=== PATIENT | female | born 1950 | race Caucasian/White ===

== ENCOUNTER 2018-01-26 20:29 | Inpatient (IN) | payer MEDICARE, MEDICAID ==
[~2018-01-26] VITALS: Ht 165.1 cm; Wt 78.9 kg
[~2018-01-26 20:29] MED LIST: ARTIFICIAL TEA1 EACH OP; ASPIR 8181 MG PO; COLACE100 MG PO; DEPAKOTE SPRIN125 MG PO; DUONEB 2.5-0.5 M3 ML INH; FENTANYL1 EAC1 TD; FISH OIL 1,001000 M2 PO; FLONASE 0.05%50 MCG NASAL; HYDROCORTISONE TOP; INVEGA PO; K-DUR 20 MEQ T20 MEQ PO; LASIX 40 MG TAB40 M2 PO; LEVOTHYROXINE 0.1 MG PO; LOPRESSOR25 PO; MACROBID 100 M100 M1 PO; MIRALAX17 GM PO; PRAVACHOL20 MG PO; REFRESH CELLUVI1 APP OPHTHALMIC; TRAMADOL 50 MG50 MG PO; TYLENOL325 MG PO; VITAMIN B-12500 MCG PO; VITAMIN D3400 UNIT PO; XANAX 0.5 MG0.5 MG PO; ZANTAC 150MG T150 MG PO; ZOLOFT25 MG PO
[2018-01-26 20:33] VITALS: BP 113/61
[2018-01-26] MEDS ORDERED: TESSALON PERLE100 MG PO (20:59)
[2018-01-26] MEDS ORDERED: SENNA S TABLET1 EACH PO (20:59)
[2018-01-26] MEDS ORDERED: AQUAPHOR HEALIN50 GM TOP (21:01)
[2018-01-26 21:06] LABS: ABSOLUTE EOSINOPHILS 0.1 thou/uL (0.0-0.7); ABSOLUTE LYMPHOCYTES 2.4 thou/uL (0.8-5.3); ABSOLUTE MONOCYTES 0.8 thou/uL (0.0-1.2); ABSOLUTE NEUTROPHILS 2.7 thou/uL (1.6-8.1); BASOPHILS 0.2 %; HEMATOCRIT 32.7 % (37.0-47.0); HEMOGLOBIN 10.8 gm/dL (12.0-15.0); LYMPHOCYTES 40.4 %; MCHC 33.2 g/dL (28.0-37.0); MCV 93.3 fL (80.0-100.0); MONOCYTES 13.4 %; MPV 6.3 fl. (7.2-11.1); NUCLEATED RBCS 0 /100WBC; PLATELET COUNT* 210 thou/uL (150-400); RDW-CV 14.8 % (10.5-14.5); WBC 5.9 thou/uL (4.0-11.0)
[2018-01-26 21:17] LABS: ANION GAP 0 mmol/L (7-16); BUN 15 mg/dL (7-18); CHLORIDE 94 mmol/L (98-107); CO2 43 mmol/L (21-32); CREATININE 0.8 mg/dL (0.6-1.3); GLUCOSE 111 mg/dL (70-99); POTASSIUM 3.5 mmol/L (3.5-5.1); SODIUM 137 mmol/L (136-145)
[2018-01-26 21:27] LABS: ALBUMIN 2.9 g/dL (3.4-5.0); ALKALINE PHOSPHATASE 67 U/L (46-116); LIPASE 76 U/L (73-393); NT-PRO BRAIN NAT PEPTIDE 347 pg/mL (<300); SGOT 6 U/L (15-37); SGPT 9 U/L (30-65); TOTAL BILIRUBIN 0.2 mg/dL (<0.1-1.0); TOTAL PROTEIN 7.1 g/dL (6.4-8.2); TROPONIN-I LEVEL <0.06 ng/mL (<0.06)
[2018-01-26 22:19] LABS: URINE BILIRUBIN NEGATIVE (Negative); URINE BLOOD 1+ (Negative); URINE CLARITY CLOUDY; URINE COLOR YELLOW; URINE GLUCOSE-RANDOM NEGATIVE (Negative); URINE KETONES TRACE (Negative); URINE PROTEIN TRACE (Negative); URINE SPECIFIC GRAVITY 1.015 (1.005-1.030)
[2018-01-26 22:21] LABS: URINE LEUKOCYTES-REFLEX 3+ (Negative); URINE NITRITE-REFLEX POSITIVE (Negative)
[2018-01-26 22:39] LABS: HYALINE CASTS 0-3 Few /LPF (None Seen); SQUAMOUS 0-3 Few /LPF (0-3); URINE WBC-REFLEX >25 Many /HPF (0-5)
[2018-01-26 22:40] LABS: BACTERIA-REFLEX >30 Many /HPF (None Seen); CRYSTALS None Seen /LPF (None Seen); URINE RBC 3-10 Few /HPF (0-2)
[2018-01-26 22:41] LABS: WBC CLUMPS Few (None Seen)
[2018-01-26 23:43] VITALS: BP 113/61
[2018-01-27] VITALS: BP 138/71
[2018-01-27] MEDS ORDERED: XANAX 0.5 MG0.5 MG PO (00:28)
[2018-01-27] MEDS ORDERED: NYAMYC15 GM TOP (00:40)
[2018-01-27] MEDS ORDERED: ADVAIR HFA 230M12 GM INH (00:42)
[2018-01-27] MEDS ORDERED: PATADAY2.5 ML OPHTHALMIC (00:43)
[2018-01-27] MEDS ORDERED: DURAGESIC1 EAC1 TRANSDERM (00:48)
[2018-01-27 04:19] LABS: HEMATOCRIT 28.2 % (37.0-47.0); HEMOGLOBIN 9.5 gm/dL (12.0-15.0); MCH 31.4 pg (26.0-34.0); MCHC 33.7 g/dL (28.0-37.0); MCV 93.1 fL (80.0-100.0); MPV 6.4 fl. (7.2-11.1); RBC 3.03 mil/uL (4.20-5.00); RDW-CV 14.6 % (10.5-14.5); WBC 5.3 thou/uL (4.0-11.0)
[2018-01-27 04:34] LABS: CALCIUM 8.5 mg/dL (8.5-10.1); CREATININE 0.6 mg/dL (0.6-1.3)
--- NOTE | 2018-01-27 05:44 | NUR ---
PT ADMITTED TO UNIT. PT ORIENTED TO ROOM, FALL AGREEMENT WENT OVER, SHOWN CALL LIGHT. PT STATED UNDERSTANDING. PT STATES SHE IS UNABLE TO SIGN ANY OF HER PAPERWORK TONIGHT DUE TO WEAKNESS. ASSESSMENT DOCUMENTED. MEDS GIVEN PER E-MAR. IV PATENT, FLUIDS INFUSING. PT REPORTS GENERALIZED PAIN, BUT STATED THAT THE PAIN IS CHRONIC AND IS ALWAYS THERE. PT HAS ON FENTANYL PATCH ON HER LEFT CLAVICAL AREA DATED 01/24/18. PT HAS PRESSURE ULCER ON COCCYX, PICTURE TAKEN, BARRIER CREAM APPLIED. PT STATES SHE HAS HAD IT FOR AWILE AND IS BEING TREATED AT THE FACILITY SHE LIVES WITH BARRIER CREAM. WILL CONTINUE WITH PLAN OF CARE.
[2018-01-27 08:00] VITALS: BP 137/50
--- NOTE | 2018-01-27 12:50 | EKG ---
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
--- NOTE | 2018-01-27 19:38 | NUR ---
I ASSUMED CARE OF THE PATIENT AT 0700. SHE IS ALERT AND ORIENTED, BUT SLOW TO RESPOND. BED IS IN THE LOW LOCKED POSITION AND CALL LIGHT IS IN REACH. HOURLY ROUNDING WAS IN PLACE AND PATIENT NEEDS WERE MET. PAIN IS MANAGED WITH PRN MEDS. SHE IS ON BEDREST AND IS BEING TURNED EVERY 2 HOURS. VQ SCAN WAS COMPLETED TODAY. A CONTINUOUS PULSE OX WAS STARTED SINCE SHE REFUSED ABG'S. WILL CONTINUE TO MONITOR.
--- NOTE | 2018-01-27 19:42 | NUR ---
I ASSUMED CARE OF THE PATIENT AT 0700. HE IS ALERT AND ORIENTED AND ABLE TO GET FROM THE BED TO THE COMMODE WITH STAND BY ASSISTANCE. BED IS IN THE LOW LOCKED POSITION AND CALL LIGHT IS IN REACH. HOURLY ROUNDING WAS COMPLETED AND PATIENT NEEDS WERE MET. PAIN IS DENIED. HE HAS HAD SEVERAL LOOSE STOOLS TODAY. RT IS WORKING ON TITRATING HIS OXYGEN DOWN. BLOOD SUGAR WENT UP DURING THE DAY SINCE WE HAD TO WAIT ON INSULIN FROM PHARMACY. FAMILY HAS ALSO BEEN BRINGING HIM SNACKS. BELLY IS GETTING SOFTER. WILL CONTINUE TO MONITOR.
[2018-01-27 20:40] VITALS: BP 131/56
[2018-01-28 04:16] LABS: HEMATOCRIT 28.6 % (37.0-47.0); HEMOGLOBIN 9.5 gm/dL (12.0-15.0); MCH 31.1 pg (26.0-34.0); MCHC 33.4 g/dL (28.0-37.0); MCV 93.3 fL (80.0-100.0); MPV 6.7 fl. (7.2-11.1); RBC 3.06 mil/uL (4.20-5.00); RDW-CV 14.9 % (10.5-14.5); WBC 5.4 thou/uL (4.0-11.0)
[2018-01-28 05:11] LABS: ALBUMIN 2.1 g/dL (3.4-5.0); CALCIUM 8.7 mg/dL (8.5-10.1); CREATININE 0.5 mg/dL (0.6-1.3); MAGNESIUM 1.6 mg/dL (1.8-2.4); POTASSIUM 4.4 mmol/L (3.5-5.1); TOTAL BILIRUBIN 0.2 mg/dL (<0.1-1.0); TOTAL PROTEIN 5.7 g/dL (6.4-8.2)
--- NOTE | 2018-01-28 05:52 | NUR ---
PT SLEPT MOST OF SHIFT. ASSESSMENT DOCUMENTED. MEDS GIVEN PER E-MAR. IV PATENT, FLUIDS INFUSING. PT REPORTED PAIN ALL OVER, TYLENOL GIVEN PER E-MAR. PT INCONTINENT THORUGH NIGHT. CAPNO REMAINED IN PLACE. PT REPOSITIONED THROUGH NIGHT. WILL CONTINUE WITH PLAN OF CARE.
[2018-01-28 08:00] VITALS: BP 104/62
[2018-01-28 14:33] LABS: CALCIUM 9.7 mg/dL (8.5-10.1); CREATININE 0.5 mg/dL (0.6-1.3); POTASSIUM 4.4 mmol/L (3.5-5.1)
[2018-01-28 17:08] VITALS: BP 149/74
--- NOTE | 2018-01-28 19:48 | NUR ---
I ASSUMED CARE OF THE PATIENT AT 0700. SHE IS ALERT AND ORIENTED X4 AND IS ON BEDREST. LISA/JOSE CAN BE CONTACTED SINCE THEY ARE THE DPOA'S IF NEEDED. BED IS IN THE LOW LOCKED POSITION AND CALL LIGHT IS IN REACH. HOURLY ROUNDING WAS COMPLETED AND PATIENT NEEDS ARE MET. PAIN IS MANAGED WITH PRN MEDS. PATIENT IS FROM [facility]. SHE HAS BEEN TURNED EVERY 2 HOURS AND MINERAL OIL IS BEING APPLIED TO THE COCCYX WOUND THAT IS OPEN TO AIR HEALING. NEW IV WAS STARTED IN THE RIGHT AC AND SHE HAD A STAT CTA. RESULTS ARE NORMAL. WILL CONTINUE TO MONITOR.
--- NOTE | 2018-01-28 23:25 | CON ---
[address] [address] CONSULTATION Name: CARLY SUTHERLAND Room: [address] IN .R.#: [id number] Admission: 01/26/18 Attend Phys: Catrachito Alfaro MD Discharge: Date of : 50 Report #: [id number] THIS REPORT FOR: //name// CC: Catrachito Dawkins DATE OF SERVICE: 01/28/2018 CONSULTATION: Infectious diseases. HISTORY OF PRESENT ILLNESS: Venus Sutherland is a 67-year-old long-term patient who presented on 01/26 complaining of increased weakness associated with nausea, diarrhea and abdominal pain. Her GI symptoms resolved, but the workup demonstrated a urinary tract infection. She continues to be very weak and uncomfortable in spite of being on antibiotics for 48 hours. The urine cultures are pending. Infectious disease consultation was requested to assist with antibiotic management. PAST MEDICAL HISTORY: Significant for mental illness including depression, bipolar and schizophrenia, requiring long-term confinement. Other diagnoses include hypertension, hyperlipidemia, urinary tract infection, sleep apnea, COPD, hypothyroidism. Chronic pain requiring fentanyl patch chronically. 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 MEDICATION RECONCILIATION: The patient's current medication includes phosphorus, magnesium, potassium supplements, enoxaparin 80 mg b.i.d., Rocephin 1 gram twice a day, atorvastatin 20 mg daily, DuoNeb 3 mL aerosol q.6 h., cholecalciferol 2000 units daily, cyanocobalamin 500 mcg daily, Nystatin topical b.i.d., L-thyroxine 100 mcg daily, famotidine 20 mg b.i.d., docusate with senna 1 tablet b.i.d., MiraLax 17 grams daily, fluticasone propionate nasal daily, furosemide 40 mg daily, potassium chloride 20 mEq daily, sertraline 25 mg daily, aspirin 81 mg daily, metoprolol 25 mg b.i.d., budesonide 0.5 mg inhalation b.i.d. Benzonatate 100 mg q.6 p.r.n., Tylenol 650 mg q.4 p.r.n. FAMILY HISTORY: Noncontributory. SOCIAL HISTORY: The patient is . She is chronic long-term patient because of mental illness and debility. She has chronic pain and chronic weakness and generally uses a wheelchair for mobility. No tobacco nor alcohol. REVIEW OF SYSTEMS: The patient is not very communicative. She says that she has pain "all over and needs more pain medicine." She is not complaining of any headache, sinus congestion, sore throat, trouble swallowing. The patient denies cough, chest pain, shortness of breath. She is not complaining of angina, [place] [address] CONSULTATION Name: REENACARLY Loren Room: [address] IN [facility].#: [id number] Admission: 01/26/18 Attend Phys: Catrachito Alfaro MD Discharge: Date of : 50 Report #: [id number] syncope, palpitations. She no longer has nausea. She is not complaining of constipation. She is having diffuse abdominal discomfort. She notes that she has occasional dysuria, not complaining of frequency, but is complaining of incontinence. She has chronic pain in her extremities. PHYSICAL EXAMINATION: GENERAL: The patient appears depressed, chronically ill, older than her stated age, but reasonably comfortable, not in any distress. VITAL SIGNS: Show the patient is afebrile since coming to the hospital. SKIN: Very pale and sallow without any rash nor exanthem. ENT: Negative. Dentition is poor. She is missing all of her upper teeth and most of her mandibular molars. The mandibular incisor do not look to be in very good condition. NECK: Supple. MENTAL STATUS: Seems more depressed, but oriented. HEART: Sounds normal. LUNGS: Clear. ABDOMEN: Belly obese, soft, nonender. EXTREMITIES: Weak, but otherwise unremarkable. LABORATORY DATA: White count is 5.4, hemoglobin 9.5, hematocrit 28.6, platelet 163,000. Electrolytes, BUN and creatinine are normal. The bicarbonate was 43, now down to 35. Glucose is normal. Liver function tests are normal. BNP is normal. Lactate is normal. Troponin is normal. The urinalysis shows greater than 25 white cells. A urine culture is pending. Unfortunately, [facility] now sending all specimens to [place] and has taken an extra day or so to get any results back. The blood cultures are sent in the incubation bottles and are so far interpreted as negative at 24 hours. Chest x-ray shows atelectasis. V/Q scan was intermediate for pulmonary embolus. IMPRESSION: Pyuria with multiple symptoms. Some gotten better with Rocephin, but the patient continues to be below her normal baseline. I suggest to give the patient a single dose of gentamicin pending results of cultures. We will use 5 mg/kg x 1. The patient will not need another dose for 24-36 hours. I am hoping by then we will have urine culture results available and can pick more specific therapy. I would like to do a followup chest x-ray in light of the abnormal V/Q scan. I elect to check a TSH with a history of hypothyroidism, general lethargy and edema. I appreciate the opportunity of input in the care of the patient. Dr. Samson will return tomorrow [place] [address] CONSULTATION Name: CARLY SUTHERLAND Room: [address] IN .R.#: [id number] Admission: 01/26/18 Attend Phys: Catrachito Alfaro MD Discharge: Date of : 50 Report #: [id number] Thank you for requesting infectious disease input into her care. <ELECTRONICALLY SIGNED> By: Froylan Stewart MD 01/28/18 2325 [id number] [id number] Stewart MD /nt
[2018-01-28 23:34] VITALS: BP 174/64
[2018-01-29 04:17] LABS: HEMATOCRIT 28.8 % (37.0-47.0); HEMOGLOBIN 9.8 gm/dL (12.0-15.0); MCH 31.2 pg (26.0-34.0); MCHC 34.1 g/dL (28.0-37.0); MCV 91.5 fL (80.0-100.0); MPV 6.5 fl. (7.2-11.1); RBC 3.14 mil/uL (4.20-5.00); RDW-CV 14.7 % (10.5-14.5); WBC 4.7 thou/uL (4.0-11.0)
[2018-01-29 04:33] LABS: ALBUMIN 2.3 g/dL (3.4-5.0); ALKALINE PHOSPHATASE 56 U/L (46-116); ANION GAP < 0 mmol/L (7-16); BUN 9 mg/dL (7-18); CALCIUM 8.7 mg/dL (8.5-10.1); CHLORIDE 102 mmol/L (98-107); CO2 39 mmol/L (21-32); CREATININE 0.7 mg/dL (0.6-1.3); GLUCOSE 106 mg/dL (70-99); MAGNESIUM 1.8 mg/dL (1.8-2.4); POTASSIUM 3.7 mmol/L (3.5-5.1); SGOT 11 U/L (15-37); SGPT 9 U/L (30-65); SODIUM 140 mmol/L (136-145); TOTAL BILIRUBIN 0.1 mg/dL (<0.1-1.0)
--- NOTE | 2018-01-29 05:13 | NUR ---
PT BEDREST THIS SHIFT, TURNED AND REPOSITIONED Q2 HOURS AND PRN FOR SKIN INTEGRITY AND COMFORT. HEALING COCCYX WOUND. RAC IVF INFUSING PER PUMP. LFA SL. O2 3L NC SAT 96%. PT CO CHRONIC BACK AND SHOULDER PAIN, FENTANYL PATCH REORDERED AND GIVEN WITH GOOD RESULT. INCONTINENT URINE OVERNIGHT, WILL ATTEMPT TO OBTAIN UA BY BEDPAN THIS MORNING. NYSTATIN TO FOLDS ORDERED. TAKING MEDS WITH PUDDING THIS SHIFT. AM LABS DRAWN. PLACED ON CONTACT ISOLATION- [facility] STAFF CALLED AND STATES PT +ESBL URINE NOVEMBER AND DECEMBER AND RECEIVED IM VIVANCE INJECTIONS. ABLE TO USE CALL LITE AND MAKE NEEDS KNOWN.
[2018-01-29 06:20] LABS: URINE BILIRUBIN NEGATIVE (Negative); URINE BLOOD 1+ (Negative); URINE CLARITY CLEAR; URINE COLOR YELLOW; URINE GLUCOSE-RANDOM NEGATIVE (Negative); URINE KETONES NEGATIVE (Negative); URINE LEUKOCYTES-REFLEX NEGATIVE (Negative); URINE NITRITE-REFLEX NEGATIVE (Negative); URINE PROTEIN NEGATIVE (Negative); URINE UROBILINOGEN 0.2 E.U./dl (0.2-1.0)
[2018-01-29 06:34] LABS: BACTERIA-REFLEX 1-9 Few /HPF (None Seen); CASTS None Seen /LPF (None Seen); CRYSTALS None Seen /LPF (None Seen); MUCUS 0-3 Light strn/LPF (None Seen); SQUAMOUS 0-3 Few /LPF (0-3); URINE RBC 3-10 Few /HPF (0-2); URINE WBC-REFLEX 0-5 Rare /HPF (0-5)
[2018-01-29 08:45] VITALS: BP 168/76
--- NOTE | 2018-01-29 13:17 | NUR ---
SW met with pt to complete initial assessment, introduce self, and SW role. Pt alert, oriented. Pt lives at [facility] and plans to return there at md. Pt expressed possibly needing assist with transportation home. Pt says she uses a wheelchair at [place]. Pt did not express any other needs or concerns at this time. SW to continue to follow.
--- NOTE | 2018-01-29 16:22 | NUR ---
Nutrition: pt screen for wound: on coccyx healing. Prealbumin 18.3, WNL. Hx HTN, GERD. Meds: lasix, IVF and others reviewed. Admit with UTI. CO2 39. No meal intake records. Unable to interview pt, will follow up tomorrow 01/30.
[2018-01-29 16:49] VITALS: BP 168/79
--- NOTE | 2018-01-29 17:06 | NUR ---
PATIENT HAS BEEN A/O X 4 THIS SHIFT, SLIGHTLY FORGETFUL AT TIMES. PATIENT CONTINUES ON O2 AT 3L/NC. HAS DENIED THE NEED FOR PAIN MEDS, CONTINUES ON FENTANYL PATCH. PATIENT REFUSING TO TURN AT TIMES, EDUCATION PROVIDED AND BARRIER CREAM/MINERAL OIL APPLIED TO COCCYX. PATIENT TAKING PILLS WHOLE IN PUDDING, TOLERATING DIET. INCONTINENT OF URINE THIS SHIFT, JAMES-CARE PROVIDED. IV FLUIDS AND ANTIBIOTICS INFUSING. UPDATED PATIENT'S FAMILY ON PLAN OF CARE. REMAINS IN ISOLATION FOR HX OF ESBL. HOURLY ROUNDING COMPLETED. CALL LIGHT WITHIN REACH. WILL CONTINUE WITH PLAN OF CARE.
[2018-01-30 00:19] VITALS: BP 176/69
--- NOTE | 2018-01-30 04:36 | NUR ---
ASSESSMENT: PT REMAIN ALERT AND ORIENT TIMES FOUR. TURNED TWO HOURS. INCONT TO URINE, NO BM. WOUND ON COCCYX UNCHANGED, BARRIER CREAM AND MEDICATION APPLIED ON COCCYX. PT STATES THAT SHE HAD $20.00 MISSING. PT ADVOCATE TO SEE LATER ON TODAY FOR FURTHER FOLLOW UP. REMAINS IN ISOLATION FOR ESBL IN URINE. FAMILY WAS AT THE BEDSIDE AT THE START OF THE SHIFT. SLOW PROGRESS TOWARDS DC GOALS. WILL CONTINUE TO MONITOR.
[2018-01-30 08:30] VITALS: BP 190/84
--- NOTE | 2018-01-30 10:27 | CON ---
[address] [address] CONSULTATION Name: CARLY VALLES Room: [address] IN M.R.#: [id number] Admission: 01/26/18 Attend Phys: Catrachito Alfaro MD Discharge: Date of : 50 Report #: [id number] THIS REPORT FOR: //name// CC: Catrachito Dawkins REASON FOR CONSULTATION: Abnormal V/Q scan. HISTORY OF PRESENT ILLNESS: The patient is a 67-year-old female patient, resident of a fdc. She was brought into the hospital and admitted on 01/26/2018 with a chief complaint of weakness associated with nausea and vomiting. She was found to have urinary tract infection and started on antibiotic, although continues to be weak. Part of the workup included a V/Q scan and a CT of the chest that will be discussed below. There is a questionable intermediate probability of PE on the V/Q scan. The patient tells me that her breathing is at baseline, but she has some cough that started a few days ago, not producing any sputum, but overall, she looks comfortable. She denied any headache or blurring of vision. She denied any nasal discharge or obstruction. She denied any runny nose. She denied any sore throat. She has no abdominal pain at this point. She is not sure if she had any lower extremity edema. She has no calf pain. REVIEW OF SYSTEMS: Full systems reviewed with the patient and negative, unless as mentioned above. PAST MEDICAL HISTORY: History of psychiatric disorder, depression, schizophrenia, resident of a fdc. She has hypertension, hyperlipidemia and recurrent urinary tract infection. There is a mention of sleep apnea in her records. She has hypothyroidism and COPD per the records. ALLERGIES: SULFA, HALDOL AND BARBITURATES. HOME MEDICATIONS: She is on magnesium, potassium supplements, Lovenox, DuoNebs, famotidine, levothyroxine, Lasix, sertraline, metoprolol, budesonide and benzonatate. FAMILY HISTORY: Noncontributory. SOCIAL HISTORY: . Resident of a fdc secondary to mental illness. She has chronic pain. She does not drink alcohol. Does not smoke. PHYSICAL EXAMINATION: VITAL SIGNS: On examination, she is on 3 liter oxygen, which is her baseline; O2 saturation more than 90%, blood pressure 150/64, pulse rate of 64 and temperature 37.1. GENERAL: She looks her stated age, awake, answering questions properly, looks chronically ill, [place] [address] CONSULTATION Name: CARLY VALLES Room: [address] IN [facility].#: [id number] Admission: 01/26/18 Attend Phys: Catrachito Alfaro MD Discharge: Date of : 50 Report #: [id number] HEENT: Head normocephalic, atraumatic. Pupils equal and reactive to light. Extraocular movement intact, not pale. No jaundice. External ears look healthy and normal. Oral cavity, dry mucous membrane. Dentition is poor. NECK: Supple. No palpable lymph nodes. No palpable thyroid. Trachea is central. HEART: S1, S2. No murmur, no gallop. CHEST: Diminished air movement at the bases. No definite wheezes or crackles. of breathing. ABDOMEN: Benign, soft, lax, nontender, obese. No masses felt. EXTREMITIES: Lower extremity, trace edema, no calf tenderness. SKIN: Normal for age and race, no rash. PSYCHIATRIC: Mood and affect, she looks depressed. NEUROLOGIC: Moving 4 extremities spontaneously. No focal weakness. LABORATORY DATA: Her CBC and BMP during hospitalization was reviewed. Today, her white blood count was 4.7, hemoglobin 9.8 and platelet of 159,000. Her creatinine is 0.7 with a bicarbonate of 39, potassium 3.7. BNP 347. INR of 1. D-dimer was elevated. Urinalysis suggestive of urinary tract infection at the time of hospitalization. Her initial chest x-ray showed some basilar atelectasis. She had a CT scan of the head, did not show acute pathology. Her V/Q scan on 01/27/2018 felt to be dul-sy-lhjrysjavtuo probability. However, the CT of the chest was negative for PE, but showed possible pneumonitis on the right lung base. IMPRESSION: 1. Weakness. 2. Urinary tract infection. 3. Pulmonary infiltrate/pneumonia. 4. Abnormal V/Q scan. The patient had a CT of the chest that was negative for PE. We will go ahead and finish the workup. We will do Doppler ultrasound of the lower extremities. Although the patient at her baseline oxygen needs 3 liters oxygen, she is covered with antibiotics. I would continue those. I do not think she needs steroids at this point. There is a mention of COPD in her records, but there is no active bronchospasm. Thank you for the consult. <ELECTRONICALLY SIGNED> By: Libby Jasso MD 01/30/18 1027 0953 [id number] Jasso MD /nt
--- NOTE | 2018-01-30 12:59 | NUR ---
Nutrition: consult from nursing regarding diet. Pt currently on low Na, CHO controlled diet. Talked with pt and is very strict with her 2 gm Na diet, est typical intake at 1400 mg Na. Pt also has a very strict diabetic diet that she follows, states she can't tolerate sugar. Meal preferences obtained. No education needed at this time.
--- NOTE | 2018-01-30 13:03 | NUR ---
Nutrition: Pt reports normal appetite, denied wt loss. Denied acute nutrition concerns. Prealbumin WNL. Wound not staged. Pt reports eating HBV protein at meals. Assess at low nutriton risk at this time.
[2018-01-30 15:24] VITALS: BP 172/61
--- NOTE | 2018-01-30 18:07 | NUR ---
PATIENT HAS BEEN A/O X 4 THIS SHIFT, FORGETFUL AT TIMES. PATIENT GIVEN TYLENOL THIS SHIFT FOR GENERALIZED PAIN. PATIENT INCONTINENT OF URINE, JAMES-CARE PROVIDED WITH EACH INCONTINENT EPISODE. PATIENT REPOSITIONED EVERY 2 HOURS AND HEELS ELEVATED. PATIENT TAKES PILLS WHOLE IN PUDDING WITHOUT DIFFICULTY. PATIENT CONTINUES ON O2 AT 3L/NC AND RT TREATMENTS. PATIENT SALINE LOCKED, IV ANTIBIOTICS INFUSED. REMAINS IN CONTACT ISOLATION FOR HX OF ESBL. HOURLY ROUNDING COMPLETED. CALL LIGHT WITHIN REACH. WILL CONTINUE WITH PLAN OF CARE.
[2018-01-30 20:00] VITALS: BP 149/75
--- NOTE | 2018-01-31 03:04 | NUR ---
ASSESSMENT: PT REMAIN ALERT AND ORIENT TIME FOUR. REFUSED TURNS POST 000. VSS, AFEBRILE. XANAX GIVEN WITH GOOD RESULTS PER PT. BUTTOCK WOUND REMAIN UNCHANGED, BARRIER CREAM AND MINERAL OIL APPLIED. BOTH IV'S PATENT AND SL EXCEPT FOR ANTIBX. CONTACT ISOLATION REMAINS FOR ESBL IN URINE. SLOW PROGRESS TOWARDS DC GOALS, WILL CONTINUE TO MONITOR.
[2018-01-31] MEDS ORDERED: PEPCID20 MG PO (08:08)
[2018-01-31] MEDS ORDERED: XANAX 0.5 MG0.5 MG PO (08:08)
[2018-01-31] MEDS ORDERED: XANAX 0.25 MG0.25 MG PO (08:08)
[2018-01-31] MEDS ORDERED: DURAGESIC25 MCG/HR TRANSDERM (08:08)
[2018-01-31] MEDS ORDERED: ATORVASTATIN CA20 MG PO (08:08)
[2018-01-31 08:30] VITALS: BP 171/69
[2018-01-31 15:51] VITALS: BP 169/68
--- NOTE | 2018-01-31 17:02 | NUR ---
SW was informed in the morning of possibility for pt to dc home to [facility]. Team discussed ID to evaluate to recommend antibiotics prior to pt dc. SW called and spoke with nurse at [facility] who will accept pt back home, SW to fax final orders and med list. SW to arrange ride, [facility] does not have transportation. [facility] does not have therapy since they are an [facility]; SW to discuss with doctor to determine orders for HH services if therapy is recommended. ID provided antibiotic recommendation. Pt to dc tomorrow during hours an admitting nurse from [facility] will be available to accept pt. LUKAS discussed with nursing.
--- NOTE | 2018-01-31 19:46 | NUR ---
PT REMAINS ON UNIT FOR UTI AND WEAKNESS AND CONT ON PRECAUTIONS FOR ESBL, PT HAS HAD NO C/O THROUGHOUT THIS SHIFT, ABT CHANGED FROM IV TO PO, MINIMAL APPETITE TODAY AND THIS NURSE ENCOURAGED PT TO EAT, PT CURRENTLY IN BED RESTING, CALL LIGHT IN REACH, HOURLY ROUNDING MAINTAINED
--- NOTE | 2018-02-01 05:07 | NUR ---
PT SLEPT SOUNDLY DURING THE NIGHT, IV SALINE LOCKED, PT TURNED Q2 HOURS, INCONTINENT, ON AT 3L/NC, BARRIER APPLIED TO BUTTOCKS WITH CHANGES, CALL LIGHT IN REACH, WILL CONTINUE TO MONITOR
[2018-02-01 08:30] VITALS: BP 157/75
[2018-02-01] MEDS ORDERED: CEFUROXIME250 MG PO (10:32)
--- NOTE | 2018-02-01 10:55 | NUR ---
Pt to dc home today to [facility]. SW discussed dc planning with pt and pt was in agreement with plan. LUKAS called [facility] and left a message about pt return home today and faxed final orders/med list. [phone] fax [phone]. LUKAS called and arranged van transportation through [facility] due to [facility] doesn't provide transportation and pt does not have family or friends who can provide a ride. Scheduled transport for 2:00-2:30. LUKAS discussed HH services, pt preference for [facility]; SW faxed referral and orders [phone], fax [phone].
[2018-02-01 11:03] VITALS: BP 155/75
[2018-02-01 11:05] VITALS: BP 155/75
--- NOTE | 2018-02-01 14:38 | NUR ---
DISCHARGE NOTE - REPORT CALLED TO [facility]. REPORT GIVEN TO CHRIS CHACON. NO QUESTIONS. ORDERS FAXED TO FACILITY. IV DC'ED WITHOUT COMPLICATIONS.
== END 2018-02-01 14:30 | disposition home health service (06) | DRG 871 ==
LOC: M.ERS 20:29 → M.3W 23:00 → M.TBA-ER 23:00 → M.3W 23:44
PROVIDERS: Emergency Medicine; Family Medicine; Internal Medicine Infectious Disease; ADMIT Internal Medicine
DX: A41.9 Sepsis, unspecified organism (principal); J96.01 Acute respiratory failure with hypoxia; G93.41 Metabolic encephalopathy; J18.9 Pneumonia, unspecified organism; N17.0 Acute kidney failure with tubular necrosis; N39.0 Urinary tract infection, site not specified; E87.2 Acidosis; F25.0 Schizoaffective disorder, bipolar type; L89.95 Pressure ulcer of unspecified site, unstageable; R40.0 Somnolence; F32.9 Major depressive disorder, single episode, unspecified; I10 Essential (primary) hypertension; E03.9 Hypothyroidism, unspecified; J44.9 Chronic obstructive pulmonary disease, unspecified; G89.29 Other chronic pain; K21.9 Gastro-esophageal reflux disease without esophagitis; G47.33 Obstructive sleep apnea (adult) (pediatric); F41.9 Anxiety disorder, unspecified; T40.4X5A Adverse effect of other synthetic narcotics, initial encounter; Z79.2 Long term (current) use of antibiotics; Z79.82 Long term (current) use of aspirin; Z79.899 Other long term (current) drug therapy; Y92.89 Other specified places as the place of occurrence of the external cause; Z88.2 Allergy status to sulfonamides; Z88.8 Allergy status to other drugs, medicaments and biological substances; Z81.8 Family history of other mental and behavioral disorders

== ENCOUNTER 2018-05-13 11:12 | Inpatient (IN) | payer MEDICARE, MEDICAID ==
[~2018-05-13] VITALS: Ht 160 cm; Wt 98.9 kg
[~2018-05-13 11:12] MED LIST changes: +ADVAIR HFA 230M12 GM INH; +AQUAPHOR HEALIN50 GM TOP; +ATORVASTATIN CA20 MG PO; +CEFUROXIME250 MG PO; +DURAGESIC1 EAC1 TRANSDERM; +DURAGESIC25 MCG/HR TRANSDERM; +NYAMYC15 GM TOP; +PATADAY2.5 ML OPHTHALMIC; +PEPCID20 MG PO; +SENNA S TABLET1 EACH PO; +TESSALON PERLE100 MG PO; +XANAX 0.25 MG0.25 MG PO
[2018-05-13 11:18] VITALS: BP 136/66
[2018-05-13 11:49] LABS: ABSOLUTE LYMPHOCYTES 2.6 thou/uL (0.8-5.3); ABSOLUTE MONOCYTES 1.1 thou/uL (0.0-1.2); ABSOLUTE NEUTROPHILS 3.6 thou/uL (1.6-8.1); BASOPHILS 0.3 %; EOSINOPHILS 0.6 %; HEMOGLOBIN 10.4 gm/dL (12.0-15.0); LYMPHOCYTES 35.3 %; MCH 32.1 pg (26.0-34.0); MCHC 33.5 g/dL (28.0-37.0); MCV 95.7 fL (80.0-100.0); MONOCYTES 15.4 %; MPV 6.4 fl. (7.2-11.1); NUCLEATED RBCS 0 /100WBC; PLATELET COUNT* 139 thou/uL (150-400); POLYS 48.4 %; RBC 3.24 mil/uL (4.20-5.00); RDW-CV 14.8 % (10.5-14.5); WBC 7.4 thou/uL (4.0-11.0)
[2018-05-13 11:58] LABS: ANION GAP < 0 mmol/L (7-16); APTT 27.3 Seconds (25.0-31.3); BUN 13 mg/dL (7-18); CALCIUM 9.1 mg/dL (8.5-10.1); CHLORIDE 99 mmol/L (98-107); CO2 42 mmol/L (21-32); CREATININE 0.9 mg/dL (0.6-1.3); GLUCOSE 88 mg/dL (70-99); POTASSIUM 3.9 mmol/L (3.5-5.1); PROTIME 10.2 Seconds (9.20-11.50); SODIUM 138 mmol/L (136-145)
[2018-05-13] MEDS ORDERED: XANAX 0.5 MG0.5 MG PO (12:12)
[2018-05-13] MEDS ORDERED: TRAMADOL 50 MG50 MG PO (12:13)
[2018-05-13] MEDS ORDERED: TESSALON PERLE100 MG PO (12:13)
[2018-05-13] MEDS ORDERED: DEPAKOTE ER500 MG PO (12:13)
[2018-05-13 12:14] LABS: ALBUMIN 2.7 g/dL (3.4-5.0); ALKALINE PHOSPHATASE 45 U/L (46-116); CK-MB MASS < 0.5 ng/mL (<0.5-3.6); NT-PRO BRAIN NAT PEPTIDE 910 pg/mL (<300); SGOT 10 U/L (15-37); SGPT 7 U/L (30-65); TOTAL BILIRUBIN 0.3 mg/dL (<0.1-1.0); TOTAL PROTEIN 6.9 g/dL (6.4-8.2); TROPONIN-I LEVEL <0.06 ng/mL (<0.06)
[2018-05-13 12:37] LABS: URINE BILIRUBIN NEGATIVE (Negative); URINE BLOOD 1+ (Negative); URINE CLARITY CLEAR; URINE COLOR YELLOW; URINE GLUCOSE-RANDOM NEGATIVE (Negative); URINE KETONES NEGATIVE (Negative); URINE LEUKOCYTES-REFLEX TRACE (Negative); URINE NITRITE-REFLEX NEGATIVE (Negative); URINE PROTEIN NEGATIVE (Negative); URINE UROBILINOGEN 0.2 E.U./dl (0.2-1.0)
[2018-05-13 12:46] LABS: SQUAMOUS 0-3 Few /LPF (0-3)
[2018-05-13 12:48] LABS: BACTERIA-REFLEX >30 Many /HPF (None Seen); CASTS None Seen /LPF (None Seen); CRYSTALS None Seen /LPF (None Seen); MUCUS 0-3 Light strn/LPF (None Seen); URINE RBC 3-10 Few /HPF (0-2)
[2018-05-13 13:23] VITALS: BP 115/51
[2018-05-13 15:37] VITALS: BP 122/60
[2018-05-13 15:53] VITALS: BP 94/52
[2018-05-13 20:00] VITALS: BP 115/51
[2018-05-14] VITALS (8 sets, daily range): BP systolic 101–135; BP diastolic 47–67
--- NOTE | 2018-05-14 09:22 | EKG ---
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1950 Requested By: Imer Sellers Order Number: [id number] MD: Familia Krishnan Measurements Intervals [place] Rate: 77 P: 64 NV: 160 QRS: -3 QRSD: 96 T: 32 QT: 365 QTc: 414 Interpretive Statements Sinus rhythm nonspecific st changes Low voltage, precordial leads Compared to ECG 01/26/2018 20:45:04 st changes noted Electronically Signed On 05-14-2018 9:22:14 CDT by Familia Krishnan [email or web address] <ELECTRONICALLY SIGNED> By: Familia Krishnan MD, [facility] 05/14/18 0922 1206 [id number] Familia Krishnan MD, [facility]ENTERJeff[facility] /EPI
[2018-05-14 13:50] LABS: BE 10.7 mmol/L (-2 to +3); PO2 76.8 mmHg (75.0-100.0); pH 7.368 (7.340-7.450)
[2018-05-14 13:52] LABS: PCO2 67.5 mmHg (35.0-45.0)
--- NOTE | 2018-05-14 16:05 | 2DMMODE ---
[place] [address] 2 D/M-MODE ECHOCARDIOGRAM Name: CARLY VALLES Room: [address] IN M.R.#: [id number] Admission: 05/13/18 Attend Phys: Carlos Wagner, Discharge: Date of : 50 Date of Service: 05/14/18 1605 Report #: [id number] THIS REPORT FOR: //name// APPROVED REPORT Study performed: 05/14/2018 13:55:18 EXAM: Comprehensive 2D, Doppler, and color-flow Echocardiogram Patient Location: Bedside BSA: 1.95 HR: 79 bpm BP: 135/67 mmHg Other Information Study Quality: Fair Indications Dyspnea 2D Dimensions IVSd: 16.60 (7-11mm) LVOT Diam: 19.81 (18-24mm) LVDd: 43.46 mm PWd: 11.40 (7-11mm) Ascending Ao: 32.15 (22-36mm) LVDs: 29.30 (25-40mm) Aortic Root: 28.21 mm Volumes Left Atrial Volume (Systole) LA ESV Index: 28.90 mL/m2 Aortic Valve AoV Peak Braden.: 1.08 m/s AO Peak Gr.: 4.70 mmHg LVOT Max P.51 mmHg AO Mean Gr.: 2.76 mmHg LVOT Mean P.18 mmHg LVOT Max V: 0.79 m/s AO V2 VTI: 25.00 cm LVOT Mean V: 0.50 m/s CONNIE (VTI): 2.26 cm2 LVOT V1 VTI: 18.34 cm Mitral Valve E/A Ratio: 1.06 MV Decel. Time: 194.76 ms MV E Max Braden.: 0.88 m/s MV PHT: 56.48 ms MVA (PHT): 3.90 [place] [address] 2 D/M-MODE ECHOCARDIOGRAM Name: CARLY VALLES Room: [address] M.R.#: [id number] Admission: 05/13/18 Attend Phys: Carlos Wagner, Discharge: Date of : 50 Date of Service: 05/14/18 1605 Report #: [id number] TDI E/Lateral E': 6.77 E/Medial E': 7.33 Medial E' Braden.: 0.12 m/s Lateral E' Braden.: 0.13 m/s Pulmonary Valve PV Peak Braden.: 0.98 m/s PV Peak Gr.: 3.81 mmHg Tricuspid Valve RAP Estimate: 5.00 mmHg TR Peak Gr.: 34.42 mmHg RVSP: 39.42 mmHg PA Pressure: 39.42 mmHg Left Ventricle The left ventricle is normal size. There is normal LV segmental wall motion. Mild concentric left ventricular hypertrophy. Left ventricular systolic function is normal. The left ventricular ejection fraction is within the normal range. LVEF is 60-65%. The left ventricular diastolic function is normal. Right Ventricle Right ventricle is dilated. The right ventricular systolic function is normal. Atria The left atrium size is normal. The right atrium size is normal. Aortic Valve The aortic valve is normal in structure. No aortic regurgitation is present. There is no aortic valvular stenosis. Mitral Valve The mitral valve is normal in structure. There is no mitral valve regurgitation noted. No evidence of mitral valve stenosis. Tricuspid Valve The tricuspid valve is normal in structure. Trace tricuspid regurgitation. estimated pa pressure 40 mm Mg Pulmonic Valve Pulmonic valve is not well visualized. There is no pulmonic valvular regurgitation[place] [address] 2 D/M-MODE ECHOCARDIOGRAM Name: REENACARLY Loren Room: [address] IN [facility]#: [id number] Admission: 05/13/18 Attend Phys: Carlos Wagner, Discharge: Date of : 50 Date of Service: 05/14/18 1605 Report #: [id number] The aortic root is normal in size. IVC is normal in size and collapses >50% with inspiration. Pericardium There is no pericardial effusion. <Conclusion> Mild concentric left ventricular hypertrophy. LVEF is 60-65%. Trace tricuspid regurgitation. estimated pa pressure 40 mm Mg <ELECTRONICALLY SIGNED> By: Familia Krishnan MD, FACC 05/14/18 1605 04 04 Familia Krishnan MD, FACC /INF
[2018-05-14 17:43] LABS: ABSOLUTE EOSINOPHILS 0.1 thou/uL (0.0-0.7); ABSOLUTE LYMPHOCYTES 2.4 thou/uL (0.8-5.3); ABSOLUTE MONOCYTES 0.6 thou/uL (0.0-1.2); ABSOLUTE NEUTROPHILS 1.8 thou/uL (1.6-8.1); BASOPHILS 0.2 %; HEMATOCRIT 27.2 % (37.0-47.0); LYMPHOCYTES 48.4 %; MCH 31.8 pg (26.0-34.0); MCHC 33.1 g/dL (28.0-37.0); MCV 95.9 fL (80.0-100.0); MONOCYTES 12.9 %; MPV 6.3 fl. (7.2-11.1); NUCLEATED RBCS 0 /100WBC; PLATELET COUNT* 134 thou/uL (150-400); POLYS 37.5 %; RBC 2.83 mil/uL (4.20-5.00); RDW-CV 14.7 % (10.5-14.5); WBC 4.9 thou/uL (4.0-11.0)
[2018-05-14 17:56] LABS: ANION GAP < 0 mmol/L (7-16); BUN 10 mg/dL (7-18); CALCIUM 8.7 mg/dL (8.5-10.1); CHLORIDE 103 mmol/L (98-107); CO2 42 mmol/L (21-32); CREATININE 0.7 mg/dL (0.6-1.3); GLUCOSE 108 mg/dL (70-99); SODIUM 141 mmol/L (136-145)
[2018-05-14 18:00] LABS: ALBUMIN 2.2 g/dL (3.4-5.0); ALKALINE PHOSPHATASE 38 U/L (46-116); SGOT 8 U/L (15-37); SGPT 5 U/L (30-65); TOTAL BILIRUBIN 0.1 mg/dL (<0.1-1.0); TOTAL PROTEIN 5.2 g/dL (6.4-8.2)
[2018-05-14 20:12] LABS: BE 13.2 mmol/L (-2 to +3); PO2 123.3 mmHg (75.0-100.0); pH 7.338 (7.340-7.450)
[2018-05-14 20:15] LABS: PCO2 79.1 mmHg (35.0-45.0)
[2018-05-14 20:16] LABS: HCO3 41.5 mmol/L (22.0-26.0)
[2018-05-15] VITALS (7 sets, daily range): BP systolic 118–142; BP diastolic 47–78
[2018-05-15 03:36] LABS: ABSOLUTE EOSINOPHILS 0.1 thou/uL (0.0-0.7); ABSOLUTE LYMPHOCYTES 2.6 thou/uL (0.8-5.3); ABSOLUTE MONOCYTES 0.7 thou/uL (0.0-1.2); ABSOLUTE NEUTROPHILS 2.1 thou/uL (1.6-8.1); BASOPHILS 0.2 %; EOSINOPHILS 0.9 %; HEMATOCRIT 30.5 % (37.0-47.0); HEMOGLOBIN 10.2 gm/dL (12.0-15.0); LYMPHOCYTES 47.5 %; MCH 32.1 pg (26.0-34.0); MCHC 33.5 g/dL (28.0-37.0); MCV 96.1 fL (80.0-100.0); MONOCYTES 13.1 %; MPV 6.2 fl. (7.2-11.1); NUCLEATED RBCS 0 /100WBC; PLATELET COUNT* 147 thou/uL (150-400); POLYS 38.3 %; RBC 3.18 mil/uL (4.20-5.00); RDW-CV 14.4 % (10.5-14.5); WBC 5.6 thou/uL (4.0-11.0)
[2018-05-15 03:47] LABS: ANION GAP < 0 mmol/L (7-16); BUN 9 mg/dL (7-18); CALCIUM 9.2 mg/dL (8.5-10.1); CHLORIDE 101 mmol/L (98-107); CO2 41 mmol/L (21-32); CREATININE 0.8 mg/dL (0.6-1.3); GLUCOSE 94 mg/dL (70-99); POTASSIUM 3.9 mmol/L (3.5-5.1); SODIUM 141 mmol/L (136-145)
[2018-05-15 07:56] LABS: BE 11.9 mmol/L (-2 to +3); HCO3 37.8 mmol/L (22.0-26.0); PO2 86.4 mmHg (75.0-100.0); pH 7.442 (7.340-7.450)
[2018-05-15 07:59] LABS: PCO2 56.7 mmHg (35.0-45.0)
--- NOTE | 2018-05-15 14:52 | CON ---
[address] [address] CONSULTATION Name: CARLY VALLES Room: [address] ADM IN M.R.#: [id number] Admission: 05/13/18 Attend Phys: Carlos Wagner MD Discharge: Date of : 50 Report #: [id number] THIS REPORT FOR: //name// CC: Carlos Dawkins REQUESTING PHYSICIAN: Dr. Valentin. REASON FOR CONSULTATION: Respiratory failure. DISCUSSION: The patient is a 67-year-old woman who was admitted after being brought to the Emergency department yesterday. She is in apparently assisted living facility. Had progressive weakness. Was oriented only to self. Typically does have some issues. Her condition had worsened. Was evaluated in the ED, subsequently was admitted. Thought she probably had a urinary tract infection and antibiotics were started. Yesterday, she apparently had episode of even less responsiveness. Was falling asleep easily. Arterial blood gases did reveal some mild hypercapnia. Given the concerns with her mental status, she was transferred to the Intensive Care Unit. She has been oxygenating well. This morning, she is awake and alert. Is able to provide some additional history. She has some limited records here at [facility]. It does appear that she does have a history of underlying COPD, though severity unknown. She has had at least one visit in our office seeing Dr. Jasso a year ago. He also saw when she was hospitalized here in the spring. She has had prior hospitalizations related to COPD and perhaps heart failure, which were at [facility] in the past. She does have a history of underlying dementia and COPD. She also has a history of obstructive sleep apnea. She cannot tell me where sleep study has been done. She does acknowledge that she has a machine at home. Per Dr. Jasso's office notes from a year ago, she actually had a BiPAP. Even at that time; however, she was having trouble trying to tolerate the machine. It is not clear how much was pressure, the mass, etc. It does sound like she had had various trials with different masks. She tells me the problem is that she is unable to get it on or off herself and staff is unable to help her as well as not being familiar with her equipment. She is on O2 continuously. She is not steroid dependent. I do not have any prior PFTs on her. Baseline, however, her COPD, it does appear that she is on DuoNeb 4 times a day as well as Advair twice a day. Notes from Dr. Jasso a year ago indicated he had changed her BiPAP to 16/12 with continuous oxygen. PAST MEDICAL HISTORY: Also remarkable apparently for schizoaffective disorder, recurrent urinary tract infections, hypothyroidism (on replacement), GERD, anxiety and depression. She also [place] [address] CONSULTATION Name: CARLY VALLES Loren Room: [address] IN M.R.#: [id number] Admission: 05/13/18 Attend Phys: Carlos Wagner MD Discharge: Date of : 50 Report #: [id number] MEDICATIONS: At the nursing facility besides the Advair and DuoNeb as noted, include fish oil, metoprolol, baby aspirin, fentanyl patch, p.r.n. tramadol, p.r.n. acetaminophen, Depakote, sertraline, p.r.n. alprazolam, potassium, Lasix, p.r.n. Tessalon Perles, eye drops, Flonase nasal spray, Pepcid, levothyroxine, nystatin. SOCIAL HISTORY: Per old notes, she is . Is currently in assisted living. Smoker until about 2 years ago. Smoked a pack of cigarettes per day. 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 FAMILY HISTORY: Unable to obtain. REVIEW OF SYSTEMS: ROS was done. Question the reliability of some of her answers. She is not aware of any recent fevers. Was aware, however, that she was quite sick and not feeling good. Denies having much sputum production. She does intermittently have a cough. She notes she does have difficulty swallowing. Does require medications either crushed or placed in pudding. Denies any recent vomiting or diarrhea. She has had some significant lower extremity edema in the past that has improved. She is not aware of any recent falls. PHYSICAL EXAMINATION: GENERAL: When she was first seen this morning, she was on BiPAP, but that was taken off. She was placed on nasal cannula. She was alert, conversant. Fair historian. She is in no acute distress. O2 saturations are running in the mid to high 90s while on the nasal cannula. She is able to speak in full sentences. HEENT: Head is normocephalic. Sclerae are nonicteric. Mucous membranes do look dry. NECK: Negative for adenopathy. HEART: Regular. Occasional extrasystole. Grade 1/6 systolic murmur. No S3 is heard. LUNGS: Show breath sounds to be diminished. She has a prolonged expiratory phase. No wheezing or crackles are heard. Excursion equal. ABDOMEN: Soft, without appreciable hepatosplenomegaly. She is mildly obese. EXTREMITIES: She has no clubbing. Radial pulses are present. On her lower extremities, she does have protective boots on. Does have trace to 1+ pretibial edema. SKIN: Warm and dry. NEUROLOGIC: She is alert, cooperative. Spontaneously moving all extremities. LABORATORY AND X-RAY FINDINGS: An echocardiogram done this admission reveals some mild LVH, though EF is normal at 60%-65%. RV was dilated. However, right ventricular systolic function appeared normal. Estimated pulmonary artery systolic pressure was 40 mmHg. Chest x-ray shows [place] [address] CONSULTATION Name: CARLY VALLES Room: [address] IN ..#: [id number] Admission: 05/13/18 Attend Phys: Carlos Wagner MD Discharge: Date of : 50 Report #: [id number] definite infiltrates. She had a CT head on admission, which was negative for any acute findings. Arterial blood gases done yesterday afternoon, she had a pH of 7.37, pCO2 of 68, pO2 of 77. Yesterday evening, her pCO2 did increase up to 79. This morning, pH of 7.44, pCO2 of 57, a pO2 of 86 with a bicarbonate of 38 that was on the BiPAP. On her chemistry profile, her serum bicarbonate is 41, potassium 3.9, BUN of 9 and creatinine 0.8. Reviewing prior chemistries in the computer system here, serum bicarbonate has typically been in the high 30 range. There are no blood gases done at this facility prior to this admission. Her white count is 5600, hemoglobin 10.2, hematocrit 30.5, platelets this morning 147,000. UA did show white blood cells, bacteria, though culture was negative. IMPRESSION: 1. Altered level of consciousness, improved today. There have been combination of factors. She did have some mild hypercapnia. Also, urinary tract infection can certainly do that especially with her other medical problems. 2. History of chronic obstructive pulmonary disease, severity unknown. She has O2 though has not been steroid dependent. 3. Obstructive sleep apnea. Supposed to be on BiPAP at home with pressures of 16/12. By history, she has not been overly compliant with this. Untreated sleep apnea will also contribute to more daytime sleepiness and perhaps also affect some of her cognitive abilities. 3. History of recurrent urinary tract infections. 4. Mild pulmonary hypertension noted on echo. Probably related to her chronic obstructive pulmonary disease as well as inadequately treated obstructive sleep apnea. 5. Mild obesity. RECOMMENDATIONS: 1. Work on getting off BiPAP this morning. We will resume use while sleeping. 2. Discussed with telehealth case manager. She will also touch base with her facility for feedback in regards to her compliance with the BiPAP there. 3. Okay to transfer out of ICU. 4. Continue bronchodilator regimen. We will add Brovana since she is normally on Advair. 5. Activity as tolerated. 6. Long-term prognosis certainly appears guarded. May need to address code status. <ELECTRONICALLY SIGNED> By: Stephanie Pendleton MD 05/15/18 1452 [id number] Pendleton MD /nt
[2018-05-16] VITALS: BP 143/62
[2018-05-16 04:00] VITALS: BP 156/78
[2018-05-16] MEDS ORDERED: CYMBALTA30 MG PO (12:31)
[2018-05-16] MEDS ORDERED: TRAMADOL 50 MG50 MG PO (12:31)
[2018-05-16] MEDS ORDERED: TYLENOL325 MG PO (12:31)
[2018-05-16] MEDS ORDERED: OXYCODONE HCL 55 MG PO (12:31)
[2018-05-16] MEDS ORDERED: DOXYCYCLINE 10100 MG PO (12:41)
[2018-05-16 13:16] VITALS: BP 144/68
== END 2018-05-16 15:10 | disposition home or self-care (01) | DRG 871 ==
LOC: M.ERS 11:12 → M.2W 12:49 → M.TBA-ER 12:49 → M.2W 13:58 → M.ICU 05-14 18:29 → M.3W 05-15 16:21
PROVIDERS: Family Medicine; Internal Medicine Pulmonary Disease
PROC: 5A09357 Assistance with Respiratory Ventilation, Less than 24 Consecutive Hours, Continuous Positive Airway Pressure (ICD-10-PCS; principal; 2018-05-14)
PROC: 5A09357 Assistance with Respiratory Ventilation, Less than 24 Consecutive Hours, Continuous Positive Airway Pressure (ICD-10-PCS; 2018-05-15)
DX: A41.9 Sepsis, unspecified organism (principal); G92 Toxic encephalopathy; J96.22 Acute and chronic respiratory failure with hypercapnia; N39.0 Urinary tract infection, site not specified; E03.9 Hypothyroidism, unspecified; R65.20 Severe sepsis without septic shock; F41.9 Anxiety disorder, unspecified; G47.33 Obstructive sleep apnea (adult) (pediatric); J44.9 Chronic obstructive pulmonary disease, unspecified; K59.00 Constipation, unspecified; K21.9 Gastro-esophageal reflux disease without esophagitis; G89.29 Other chronic pain; E78.5 Hyperlipidemia, unspecified; E86.0 Dehydration; I50.9 Heart failure, unspecified; F03.90 Unspecified dementia, unspecified severity, without behavioral disturbance, psychotic disturbance, mood disturbance, and anxiety; I27.20 Pulmonary hypertension, unspecified; E66.9 Obesity, unspecified; F25.0 Schizoaffective disorder, bipolar type; I11.0 Hypertensive heart disease with heart failure; D63.8 Anemia in other chronic diseases classified elsewhere; Z79.82 Long term (current) use of aspirin; Z23 Encounter for immunization; Z88.2 Allergy status to sulfonamides; Z88.8 Allergy status to other drugs, medicaments and biological substances; Z68.38 Body mass index [BMI] 38.0-38.9, adult

== ENCOUNTER 2021-03-16 22:11 | Emergency (ER) | payer MEDICARE, MEDICAID ==
[~2021-03-16] VITALS: Ht 162.6 cm; Wt 102.1 kg
[~2021-03-16 22:11] MED LIST changes: +CYMBALTA30 MG PO; +DEPAKOTE ER500 MG PO; +DOXYCYCLINE 10100 MG PO; +OXYCODONE HCL 55 MG PO
[2021-03-17 01:08] VITALS: BP 119/80
== END 2021-03-17 00:55 | disposition home or self-care (01) ==
LOC: M.ERS 22:11
DX: G89.4 Chronic pain syndrome (principal); I10 Essential (primary) hypertension; K21.9 Gastro-esophageal reflux disease without esophagitis; E03.9 Hypothyroidism, unspecified; Z88.1 Allergy status to other antibiotic agents; Z88.2 Allergy status to sulfonamides; Z88.8 Allergy status to other drugs, medicaments and biological substances; Z79.899 Other long term (current) drug therapy